=== PATIENT | female | born 1985 | race Caucasian/White ===

== ENCOUNTER 2017-09-14 16:11 | Emergency (ER) | payer BC, OTHER ==
[~2017-09-14 16:11] MED LIST: AUGM875 PO; BUPR150T3 PO; FISH1000 PO; FLUC100T41 PO; LORC10TA PO; PERC7.5T13 PO; PROZ40CA PO; SULF1TAB47 PO
[2017-09-14 16:23] VITALS: BP 141/90; PULSE 80; RESP 18; TEMP 97.8; O2SAT 99
[2017-09-14 18:07] LABS: AUTOMATED NEUTROPHIL # 4.4 TH/MM3 (1.8-7.7); BASOPHIL # 0.1 TH/MM3 (0-0.2); BASOPHIL % 0.9 % (0.0-2.0); EOSINOPHIL # 0.1 TH/MM3 (0-0.4); HEMATOCRIT 38.8 % (35.0-46.0); HEMOGLOBIN 13.4 GM/DL (11.6-15.3); LYMPH % 29.5 % (9.0-44.0); LYMPHOCYTE # 2.3 TH/MM3 (1.0-4.8); MEAN CELL VOLUME 91.4 FL (80.0-100.0); MEAN CORPUSCULAR HEMOGLOBIN 31.5 PG (27.0-34.0); MEAN CORPUSCULAR HGB CONC 34.5 % (32.0-36.0); MEAN PLATELET VOLUME 7.5 FL (7.0-11.0); MONO % 12.5 % (0.0-8.0); NEUT % 56.1 % (16.0-70.0); PLATELET COUNT 288 TH/MM3 (150-450); RED BLOOD COUNT 4.24 MIL/MM3 (4.00-5.30); RED CELL DISTRIBUTION WIDTH 13.9 % (11.6-17.2); WHITE BLOOD COUNT 7.8 TH/MM3 (4.0-11.0)
[2017-09-14 18:22] LABS: ALBUMIN 3.9 GM/DL (3.4-5.0); ALT (GPT) 92 U/L (10-53); AST (GOT) 37 U/L (15-37); BICARBONATE 22.5 MEQ/L (21.0-32.0); BLOOD UREA NITROGEN 15 MG/DL (7-18); CALCIUM 8.5 MG/DL (8.5-10.1); CHLORIDE 106 MEQ/L (98-107); CREATININE 0.62 MG/DL (0.50-1.00); GLOMERULAR FILTRATION RATE 111 ML/MIN (>89); GLUCOSE,RANDOM 90 MG/DL (74-106); SODIUM (NA) 135 MEQ/L (136-145)
[2017-09-14 18:32] LABS: ALKALINE PHOSPHATASE 86 U/L (45-117); TOTAL BILIRUBIN ADULT 0.3 MG/DL (0.2-1.0); TOTAL PROTEIN 7.2 GM/DL (6.4-8.2)
--- NOTE | 2017-09-14 23:02 | PD ---
HPI Chief Complaint: Psychiatric Symptoms Time Seen by Provider: 21:57 Travel History International Travel<30 days: No Contact w/Intl Traveler<30days: No Traveled to known affect area: No History of Present Illness HPI 32-year-old white female presents emergency department under [place] by PD. Patient's mother had called police after they had gotten into an argument at home. Patient has a history of blood clotting disorder etiology is unclear as well as primary variable immune deficiency. Patient was placed under [place] and brought to [facility]. It was determined that she was beyond their scope of practice because she was on Xarelto. The patient here denies any suicidal homicidal ideation. She denies any medical complaints. She states that she is merrily hungry. She gets into arguments with her mother on a regular basis. PFSH Past Medical History Bipolar Disorder: Yes Anxiety: Yes Depression: Yes Diminished Hearing: No Gastrointestinal Disorders: Yes (GASTRIC BYPASS ) Medical other: Yes (PTSD) ?: Not Social History Alcohol Use: No Tobacco Use: No Substance Use: No Allergies-Medications (Allergen,Severity, Reaction): Coded Allergies: cefuroxime (Unverified Allergy, Severe, HIVES, 09/14/17) levothyroxine (Verified Allergy, Unknown, 09/14/17) Uncoded Allergies: CEFZIL (Allergy, Mild, HIVES, 12/24/07) Reported Meds & Prescriptions Reported Meds & Active Scripts Active Percocet 7.5/325 (Oxycodone/Acetaminophen) Tab 1 Tab PO Q6HPRN FOR PAIN Diflucan (Fluconazole) 100 Mg Tab 100 Mg PO DAILY Bactrim Ds (Trimethoprim/Sulfamethoxazole) Tab 1 Tab PO BID Reported Lorcet 10/650 (Acetaminophen/Hydrocodone Bitart) Tab 1 Tab PO DIRECTED FOR PAIN Fish Oil 1,000 Mg Cap 1,000 Mg PO DAILY Prozac (Fluoxetine HCl) 40 Mg Cap 80 Mg PO DAILY Bupropion Hcl Xl (Bupropion HCl) 150 Mg Tab 300 Mg PO DAILY Augmentin (Amoxicillin/Clavulanate Potassium) 875 Mg Tab 875 Mg PO BID Review of Systems General / Constitutional: No: Fever Eyes: No: Visual changes HENT: No: Headaches Cardiovascular: No: Chest Pain or Discomfort Respiratory: No: Shortness of Breath Gastrointestinal: No: Abdominal Pain Genitourinary: No: Dysuria Musculoskeletal: No: Pain Skin: No Rash Neurologic: No: Weakness Psychiatric: No: Anxiety, Depression, Suicidal Ideations, Disorder of Thought, Mood Disorder, Substance Abuse, Homicidal Ideation Endocrine: No: Polydipsia Hematologic/Lymphatic: No: Easy Bruising Physical Exam Narrative GENERAL: Well-nourished, well-developed patient. SKIN: Warm and dry. HEAD: Normocephalic and atraumatic. EYES: No scleral icterus. No injection or drainage. ENT: No nasal drainage noted. Mucous membranes pink. Airway patent. NECK: Supple, trachea midline. Moves head freely without obvious discomfort. CARDIOVASCULAR: Regular rate and rhythm without murmurs, gallops, or rubs. RESPIRATORY: Breath sounds equal bilaterally. No accessory muscle use. GASTROINTESTINAL: Abdomen soft, non-tender, nondistended. EXTREMITIES: No cyanosis or edema. BACK: Nontender without obvious deformity. No CVA tenderness. NEURO: Patient is alert and oriented. no sensorimotor deficits. Nonfocal. Normal speech. PSYCH: No delusions. No auditory or visual hallucinations. Data Data Last Documented VS Vital Signs Date Time Temp Pulse Resp B/P (MAP) Pulse Ox O2 Delivery O2 Flow Rate FiO2 09/14/17 16:23 97.8 80 18 141/90 (107) 99 Orders Orders Complete Blood Count With Diff (09/14/17 16:50) Comprehensive Metabolic Panel (09/14/17 16:50) Thyroid Stimulating Hormone (09/14/17 16:50) Urinalysis - C+S If Indicated (09/14/17 16:50) Ed Urine Pregnancytest Poc (09/14/17 16:50) Psych Screen (09/14/17 16:50) Drug Screen, Random Urine (09/14/17 16:50) Alcohol (Ethanol) (09/14/17 16:50) Labs Laboratory Tests Test 09/14/17 17:44 White Blood Count 7.8 TH/MM3 Red Blood Count 4.24 MIL/MM3 Hemoglobin 13.4 GM/DL Hematocrit 38.8 % Mean Corpuscular Volume 91.4 FL Mean Corpuscular Hemoglobin 31.5 PG Mean Corpuscular Hemoglobin Concent 34.5 % Red Cell Distribution Width 13.9 % Platelet Count 288 TH/MM3 Mean Platelet Volume 7.5 FL Neutrophils (%) (Auto) 56.1 % Lymphocytes (%) (Auto) 29.5 % Monocytes (%) (Auto) 12.5 % Eosinophils (%) (Auto) 1.0 % Basophils (%) (Auto) 0.9 % Neutrophils # (Auto) 4.4 TH/MM3 Lymphocytes # (Auto) 2.3 TH/MM3 Monocytes # (Auto) 1.0 TH/MM3 Eosinophils # (Auto) 0.1 TH/MM3 Basophils # (Auto) 0.1 TH/MM3 CBC Comment DIFF FINAL Differential Comment Blood Urea Nitrogen 15 MG/DL Creatinine 0.62 MG/DL Random Glucose 90 MG/DL Total Protein 7.2 GM/DL Albumin 3.9 GM/DL Calcium Level 8.5 MG/DL Alkaline Phosphatase 86 U/L Aspartate Amino Transf (AST/SGOT) 37 U/L Alanine Aminotransferase (ALT/SGPT) 92 U/L Total Bilirubin 0.3 MG/DL Sodium Level 135 MEQ/L Potassium Level 4.3 MEQ/L Chloride Level 106 MEQ/L Carbon Dioxide Level 22.5 MEQ/L Anion Gap 7 MEQ/L Estimat Glomerular Filtration Rate 111 ML/MIN Thyroid Stimulating Hormone 3rd Gen 1.750 uIU/ML Ethyl Alcohol Level LESS THAN 3 MG/DL MDM Medical Decision Making Medical Screen Exam Complete: Yes Emergency Medical Condition: Yes Medical Record Reviewed: Yes Interpretation(s) Laboratory Tests Test 09/14/17 17:44 White Blood Count 7.8 TH/MM3 Red Blood Count 4.24 MIL/MM3 Hemoglobin 13.4 GM/DL Hematocrit 38.8 % Mean Corpuscular Volume 91.4 FL Mean Corpuscular Hemoglobin 31.5 PG Mean Corpuscular Hemoglobin Concent 34.5 % Red Cell Distribution Width 13.9 % Platelet Count 288 TH/MM3 Mean Platelet Volume 7.5 FL Neutrophils (%) (Auto) 56.1 % Lymphocytes (%) (Auto) 29.5 % Monocytes (%) (Auto) 12.5 % Eosinophils (%) (Auto) 1.0 % Basophils (%) (Auto) 0.9 % Neutrophils # (Auto) 4.4 TH/MM3 Lymphocytes # (Auto) 2.3 TH/MM3 Monocytes # (Auto) 1.0 TH/MM3 Eosinophils # (Auto) 0.1 TH/MM3 Basophils # (Auto) 0.1 TH/MM3 CBC Comment DIFF FINAL Differential Comment Blood Urea Nitrogen 15 MG/DL Creatinine 0.62 MG/DL Random Glucose 90 MG/DL Total Protein 7.2 GM/DL Albumin 3.9 GM/DL Calcium Level 8.5 MG/DL Alkaline Phosphatase 86 U/L Aspartate Amino Transf (AST/SGOT) 37 U/L Alanine Aminotransferase (ALT/SGPT) 92 U/L Total Bilirubin 0.3 MG/DL Sodium Level 135 MEQ/L Potassium Level 4.3 MEQ/L Chloride Level 106 MEQ/L Carbon Dioxide Level 22.5 MEQ/L Anion Gap 7 MEQ/L Estimat Glomerular Filtration Rate 111 ML/MIN Thyroid Stimulating Hormone 3rd Gen 1.750 uIU/ML Ethyl Alcohol Level LESS THAN 3 MG/DL Differential Diagnosis MDM: High Differential diagnoses: Schizophrenia, schizoaffective disorder, bipolar, anxiety, depression, adjustment reaction, mood disorder NOS, ODD, depressive disorder NOS, dementia, dementia with agitation, psychosis NOS, substance induced mood disorder, DMDD, Asperger syndrome, infection,electrolyte abnormality, malingering. Narrative Course Mental health screening discussed with the patient. Psychiatric screen ordered. The patient has been medically cleared. This is medical clearance for psychiatric admission Diagnosis Primary Impression: Medical clearance for psychiatric admission Condition: Cecil Shankar Sep 14, 2017 23:02
[2017-09-14 23:28] LABS: BILIRUBIN, URINE NEG (NEG); BLOOD, URINE TRACE (NEG); GLUCOSE,URINE NEG (NEG); KETONE, URINE NEG (NEG); MUCUS URINE FEW /lpf (OCC); NITRITE,URINE NEG (NEG); PH, URINE 6.5 (5.0-8.5); SQUAMOUS EPITHELIAL CELL URINE 7 /hpf (0-5); URINE COLOR YELLOW (YELLW/STRAW); URINE LEUKOCYTE ESTERASE TRACE (NEG)
[2017-09-15] MEDS ORDERED: levETIRAcetam 500 MG TAB PO ONE (02:00)
[2017-09-15] MEDS ORDERED: RIVAROXABAN 20 MG TAB PO ONE (02:00)
[2017-09-15 02:33] VITALS: BP 128/64; PULSE 77; RESP 17; O2SAT 99
[2017-09-15 10:29] VITALS: BP 137/78; PULSE 90; RESP 16; O2SAT 99
[2017-09-15] MEDS ORDERED: XARE20TA PO (14:43)
[2017-09-15] MEDS ORDERED: LEVE500 PO (14:44)
[2017-09-15] MEDS ORDERED: ALPR.25 PO (14:45)
[2017-09-15] MEDS ORDERED: WELLTAB39 PO (14:47)
[2017-09-15] MEDS ORDERED: TRIL300T PO (14:48)
[2017-09-15] MEDS ORDERED: GABA100C4 PO (14:49)
[2017-09-15] MEDS ORDERED: CYMB60CA PO (14:49)
[2017-09-15] MEDS ORDERED: SPIR25 PO (14:50)
[2017-09-15] MEDS ORDERED: SERO100T PO (14:50)
[2017-09-15] MEDS ORDERED: SYNT88TA PO (14:51)
[2017-09-15] MEDS ORDERED: FAMO1TAB37 PO (14:51)
[2017-09-15] MEDS ORDERED: SACC1CAP3 PO (14:52)
[2017-09-15] MEDS ORDERED: MULT-65 PO (14:53)
[2017-09-15] MEDS ORDERED: Iron Supplement PO (14:53)
[2017-09-15] MEDS ORDERED: CALC1TAB87 PO (14:55)
--- NOTE | 2017-09-15 16:54 | PD.PSY.CON ---
Provisional Diagnosis Admission Date [place] I. Adjustment disorder with disturbance of conduct, bipolar disorder, PTSD, Asperger's syndrome [place] II. Deferred History of Present Illness Service Psychiatry Consult Requested By ER Reason for Consult Aggressive behavior at home Primary Care Physician Unknown HPI The patient is a 32-year-old woman, domiciled with her mother, single , unemployed, with an extensive psychiatric history of bipolar disorder, PTSD, autism spectrum disorder, psychiatric hospitalizations, last hospitalization about 6 months ago in [facility], no previous suicidal attempts, she has outpatient psychiatric care with private psychiatrist Dr. lee, she is on Trileptal 900 mg twice a day, Wellbutrin 200 mg, Cymbalta 60 mg, Seroquel 150 mg at bedtime, medical history of seizures, fibromyalgia, asthma, who presents emergency department under Willis act by PD. Patient's mother had called police after they had gotten into an argument at home. On psychiatric evaluation today the patient is calm, cooperative and pleasant. The patient reports that she had one of her regular arguments with her mother today, her mother got very upset and called the police. Moment the patient does not present any evidence of depression, anxiety, angelo or psychosis. The patient denies suicidal and homicidal ideation, the patient is logical, coherent and relevant. The delusions, no obsessions, no paranoia, no aggressive behavior, no agitation, no disorganized behavior speech present. Review of Systems Constitutional: DENIES: Diaphoretic episodes, Fatigue, Fever, Weight gain, Weight loss, Chills, Dizziness, Change in appetite, Night Sweats Endocrine: DENIES: Abnorml menstrual pattern, Heat/cold intolerance, Polydipsia , Polyuria, Polyphagia Eyes: DENIES: Blurred vision, Diplopia, Eye inflammation, Eye pain, Vision loss , Photosensitivity, Double Vision Ears, nose, mouth, throat: DENIES: Tinnitus, Hearing loss, Vertigo, Nasal discharge, Oral lesions, Throat pain, Hoarseness, Ear Pain, Running Nose, Epistaxis, Sinus Pain, Toothache, Odynophagia Respiratory: DENIES: Apneas, Cough, Snoring, Wheezing, Hemoptysis, Sputum production, Shortness of breath Cardiovascular: DENIES: Chest pain, Palpitations, Syncope, Dyspnea on Exertion , PND, Lower Extremity Edema, Orthopnea, Claudication Gastrointestinal: DENIES: Abdominal pain, Black stools, Bloody stools, Constipation, Diarrhea, Nausea, Vomiting, Difficulty Swallowing, Anorexia Genitourinary: DENIES: Abnormal vaginal bleeding, Dysmenorrhea, Dyspareunia, Sexual dysfunction, Urinary frequency, Urinary incontinence, Urgency, Hematuria , Dysuria, Nocturia, Vaginal discharge Musculoskeletal: DENIES: Joint pain, Muscle aches, Stiffness, Joint Swelling, Back pain, Neck pain Integumentary: DENIES: Abnormal pigmentation, Pruritus, Rash, Nail changes, Breast masses, Breast skin changes, Nipple discharge Hematologic/lymphatic: DENIES: Bruising, Lymphadenopathy Neurologic: DENIES: Abnormal gait, Headache, Localized weakness, Paresthesias, Seizures, Speech Problems, Tremor, Poor Balance Psychiatric: DENIES: Anxiety, Confusion, Mood changes, Depression, Hallucinations, Agitation, Suicidal Ideation, Homicidal Ideation, Delusions Past Family Social History Coded Allergies: cefuroxime (Unverified Allergy, Severe, HIVES, 09/14/17) levothyroxine (Verified Allergy, Unknown, 09/14/17) Uncoded Allergies: CEFZIL (Allergy, Mild, HIVES, 12/24/07) Reported Medications Calcium Carbonate-Cholecalciferol (Calcium 600 with Vitamin D) 600-400 mg-Unit Tab, 1 TAB PO DAILY for Calcium Supplement, TAB 0 Refills 09/15/17 [Iron Supplement] No Conflict Check, 60 MG PO DAILY 09/15/17 Multiple Vitamin (Multi-Vitamin Daily) 1 Tab Tab, 1 TAB PO DAILY for Nutritional Supplement, TAB 0 Refills 09/15/17 Saccharomyces Boulardii (Probiotic) 250 Mg Cap, 250 MG PO BID for Nutritional Supplement, CAP 0 Refills 09/15/17 Famotidine (Pepcid) 20 Mg Tab, PO BID, #60 TAB 0 Refills 09/15/17 Levothyroxine (Synthroid) 88 Mcg Tab, 88 MCG PO DAILY for Thyroid, #30 TAB 0 Refills 09/15/17 Spironolactone (Aldactone) 25 Mg Tab, 25 MG PO DAILY, #30 TAB 0 Refills 09/15/17 Quetiapine (Seroquel) 100 Mg Tab, 150 MG PO HS, #30 TAB 0 Refills 09/15/17 Gabapentin (Gabapentin) 100 Mg Cap, 100 MG PO TID, #90 CAP 0 Refills 09/15/[address] (Cymbalta DR) 60 Mg Capdr, 60 MG PO DAILY, #30 CAP 0 Refills 09/15/17 Oxcarbazepine (Trileptal) 300 Mg Tab, 900 MG PO BID for Seizure Control, #60 TAB 0 Refills 09/15/17 Bupropion HCl ER 24 HR (Wellbutrin Xl 24 HR) 300 Mg Tab, 300 MG PO DAILY for Control Depression, TAB 0 Refills 09/15/17 Alprazolam (Xanax) 0.25 Mg Tab, 0.25 MG PO BID Y for ANXIETY, TAB 0 Refills 09/15/17 Levetiracetam (Keppra) 500 Mg Tab, 500 MG PO BID for Control Seizures, #60 TAB 0 Refills 09/15/17 Rivaroxaban (Xarelto) 20 Mg Tab, 20 MG PO DAILY for Blood Clot Prevention, TAB 0 Refills 09/15/17 Discontinued Reported Medications Hydrocodone-Acetaminophen (Lorcet 10/650) Tab, 1 TAB PO DIRECTED, 0 Refills FOR PAIN 12/24/07 [place]-3 Fatty Acids (Fish Oil) 1,000 Mg Cap, 1000 MG PO DAILY, 0 Refills 12/24/07 Fluoxetine Hcl (Prozac) 40 Mg Cap, 80 MG PO DAILY, 0 Refills 12/24/07 Bupropion Hcl (Bupropion Hcl Xl) 150 Mg Tab, 300 MG PO DAILY, 0 Refills 12/24/07 Amoxicillin/Clavulanate K (Augmentin) 875 Mg Tab, 875 MG PO BID, #14 0 Refills 12/24/07 Discontinued Scripts Oxycodone-Acetaminophen 7.5-325 mg (Percocet 7.5-325 mg) 1 Tab, 1 TAB PO Q6HPRN , #20 0 Refills FOR PAIN Prov:MACK DUMAS M.D. 12/24/07 Fluconazole 100 mg (Diflucan 100 mg) 100 Mg Tab, 100 MG PO DAILY, #7 0 Refills Prov:MACK DUMAS M.D. 12/24/07 Trimethoprim/Sulfamethoxazole (Bactrim Ds) Tab, 1 TAB PO BID, #20 0 Refills Prov:MACK DUMAS M.D. 12/24/07 Family Psych History Family psychiatric history Social History Patient was born and raised in [place] Patient's Strengths (min. 2) Family support, outpatient psychiatric Physical Exam Vital Signs Vital Signs Date Time Temp Pulse Resp B/P (MAP) Pulse Ox O2 Delivery O2 Flow Rate FiO2 09/15/17 10:29 90 16 137/78 (97) 99 Room Air 09/14/17 16:23 97.8 Lab Results Test 09/14/17 17:44 09/14/17 22:45 White Blood Count 7.8 TH/MM3 Red Blood Count 4.24 MIL/MM3 Hemoglobin 13.4 GM/DL Hematocrit 38.8 % Mean Corpuscular Volume 91.4 FL Mean Corpuscular Hemoglobin 31.5 PG Mean Corpuscular Hemoglobin Concent 34.5 % Red Cell Distribution Width 13.9 % Platelet Count 288 TH/MM3 Mean Platelet Volume 7.5 FL Neutrophils (%) (Auto) 56.1 % Lymphocytes (%) (Auto) 29.5 % Monocytes (%) (Auto) 12.5 % Eosinophils (%) (Auto) 1.0 % Basophils (%) (Auto) 0.9 % Neutrophils # (Auto) 4.4 TH/MM3 Lymphocytes # (Auto) 2.3 TH/MM3 Monocytes # (Auto) 1.0 TH/MM3 Eosinophils # (Auto) 0.1 TH/MM3 Basophils # (Auto) 0.1 TH/MM3 CBC Comment DIFF FINAL Differential Comment Blood Urea Nitrogen 15 MG/DL Creatinine 0.62 MG/DL Random Glucose 90 MG/DL Total Protein 7.2 GM/DL Albumin 3.9 GM/DL Calcium Level 8.5 MG/DL Alkaline Phosphatase 86 U/L Aspartate Amino Transf (AST/SGOT) 37 U/L Alanine Aminotransferase (ALT/SGPT) 92 U/L Total Bilirubin 0.3 MG/DL Sodium Level 135 MEQ/L Potassium Level 4.3 MEQ/L Chloride Level 106 MEQ/L Carbon Dioxide Level 22.5 MEQ/L Anion Gap 7 MEQ/L Estimat Glomerular Filtration Rate 111 ML/MIN Thyroid Stimulating Hormone 3rd Gen 1.750 uIU/ML Ethyl Alcohol Level LESS THAN 3 MG/DL Urine Color YELLOW Urine Turbidity HAZY Urine pH 6.5 Urine Specific [place] 1.030 Urine Protein TRACE mg/dL Urine Glucose (UA) NEG mg/dL Urine Ketones NEG mg/dL Urine Occult Blood TRACE Urine Nitrite NEG Urine Bilirubin NEG Urine Urobilinogen LESS THAN 2.0 MG/DL Urine Leukocyte Esterase TRACE Urine RBC 62 /hpf Urine WBC 4 /hpf Urine Squamous Epithelial Cells 7 /hpf Urine Mucus FEW /lpf Microscopic Urinalysis Comment CULT NOT INDICATED Urine Opiates Screen NEG Urine Barbiturates Screen NEG Urine Amphetamines Screen NEG Urine Benzodiazepines Screen POS Urine Cocaine Screen NEG Urine Cannabinoids Screen NEG Mental Status Examination Appearance: Appropriate Consciousness: Alert Orientation: x4 Motor Activity: Normal gait Speech: Unremarkable Language: Adequate Fund of Knowledge: Adequate Attention and Concentration: Adequate Memory: Unremarkable Mood: Appropriate Affect: Appropriate Thought Process & Associations: Intact Thought Content: Appropriate Hallucination Type: None Delusion Type: None Suicidal Ideation: No Suicidal Plan: No Suicidal Intention: No Homicidal Ideation: No Homicidal Plan: No Homicidal Intention: No Insight: Adequate Judgment: Adequate Assessment & Plan Problem List: (1) Adjustment disorder with disturbance of conduct ICD Codes: F43.24 - Adjustment disorder with disturbance of conduct Assessment & Plan: Patient does not present any neuropsychiatric symptoms that require an immediate psychiatric attention at this moment. Patient denies suicidal or homicidal ideation, she denies visual and auditory hallucinations. Patient does not meet criteria for involuntary psychiatric admission. She can continue her psychiatric care as an outpatient with primary psychiatrist. Willis act will be lifted. Assessment & Plan Estimated LOS: Pranav Devries MD Sep 15, 2017 16:54
--- NOTE | 2017-09-15 17:00 | PD ---
Physical Exam Time Seen by Provider: 16:[address] Ledesma has evaluated the patient, lifted the Willis act and cleared the patient for discharge. Data Data Last Documented VS Vital Signs Date Time Temp Pulse Resp B/P (MAP) Pulse Ox O2 Delivery O2 Flow Rate FiO2 09/15/17 10:29 90 16 137/78 (97) 99 Room Air 09/14/17 16:23 97.8 Orders Orders Complete Blood Count With Diff (09/14/17 16:50) Comprehensive Metabolic Panel (09/14/17 16:50) Thyroid Stimulating Hormone (09/14/17 16:50) Urinalysis - C+S If Indicated (09/14/17 16:50) Ed Urine Pregnancytest Poc (09/14/17 16:50) Psych Screen (09/14/17 16:50) Drug Screen, Random Urine (09/14/17 16:50) Alcohol (Ethanol) (09/14/17 16:50) Rivaroxaban (Xarelto) (09/15/17 02:00) Levetiracetam (Keppra) (09/15/17 02:00) Diet Regular Basic (09/15/17 Breakfast) Diet Regular Basic (09/15/17 Lunch) Diet Regular Basic (09/15/17 Dinner) Labs Laboratory Tests Test 09/14/17 17:44 09/14/17 22:45 White Blood Count 7.8 TH/MM3 Red Blood Count 4.24 MIL/MM3 Hemoglobin 13.4 GM/DL Hematocrit 38.8 % Mean Corpuscular Volume 91.4 FL Mean Corpuscular Hemoglobin 31.5 PG Mean Corpuscular Hemoglobin Concent 34.5 % Red Cell Distribution Width 13.9 % Platelet Count 288 TH/MM3 Mean Platelet Volume 7.5 FL Neutrophils (%) (Auto) 56.1 % Lymphocytes (%) (Auto) 29.5 % Monocytes (%) (Auto) 12.5 % Eosinophils (%) (Auto) 1.0 % Basophils (%) (Auto) 0.9 % Neutrophils # (Auto) 4.4 TH/MM3 Lymphocytes # (Auto) 2.3 TH/MM3 Monocytes # (Auto) 1.0 TH/MM3 Eosinophils # (Auto) 0.1 TH/MM3 Basophils # (Auto) 0.1 TH/MM3 CBC Comment DIFF FINAL Differential Comment Blood Urea Nitrogen 15 MG/DL Creatinine 0.62 MG/DL Random Glucose 90 MG/DL Total Protein 7.2 GM/DL Albumin 3.9 GM/DL Calcium Level 8.5 MG/DL Alkaline Phosphatase 86 U/L Aspartate Amino Transf (AST/SGOT) 37 U/L Alanine Aminotransferase (ALT/SGPT) 92 U/L Total Bilirubin 0.3 MG/DL Sodium Level 135 MEQ/L Potassium Level 4.3 MEQ/L Chloride Level 106 MEQ/L Carbon Dioxide Level 22.5 MEQ/L Anion Gap 7 MEQ/L Estimat Glomerular Filtration Rate 111 ML/MIN Thyroid Stimulating Hormone 3rd Gen 1.750 uIU/ML Ethyl Alcohol Level LESS THAN 3 MG/DL Urine Color YELLOW Urine Turbidity HAZY Urine pH 6.5 Urine Specific [place] 1.030 Urine Protein TRACE mg/dL Urine Glucose (UA) NEG mg/dL Urine Ketones NEG mg/dL Urine Occult Blood TRACE Urine Nitrite NEG Urine Bilirubin NEG Urine Urobilinogen LESS THAN 2.0 MG/DL Urine Leukocyte Esterase TRACE Urine RBC 62 /hpf Urine WBC 4 /hpf Urine Squamous Epithelial Cells 7 /hpf Urine Mucus FEW /lpf Microscopic Urinalysis Comment CULT NOT INDICATED Urine Opiates Screen NEG Urine Barbiturates Screen NEG Urine Amphetamines Screen NEG Urine Benzodiazepines Screen POS Urine Cocaine Screen NEG Urine Cannabinoids Screen NEG MDM Supervised Visit with [facility]: No Narrative Course Dr. Ledesma has evaluated the patient, lifted the Willis act and cleared the patient for discharge. Patient contracts safety. Denies suicidal or homicidal ideations. Patient will be provided community resource packet to [facility] for follow-up. Has friends and family for support. Patient was medically cleared by alternate provider prior to psych screening. Patient has been evaluated by psychiatry and and is now cleared for discharge. Diagnosis Primary Impression: Adjustment disorder with disturbance of conduct Referrals: [facility] (Out patient) [facility] Primary Care Physician Psychiatrist Manju [facility] Patient Instructions: General Instructions, Mood Disorders (ED) Additional Instruction: Contract safety to your self and others Follow-up with psychiatry Follow-up with primary care provider Follow-up with [facility] Return to the emergency department immediately with worsening of symptoms Med/Other Pt SpecificInfo: No Change to Meds, No Meds Exist/No RX given Disposition: 01 DISCHARGE HOME Condition: Stable Olivia Handley Sep 15, 2017 17:00
[2017-09-15 18:34] VITALS: BP 159/79; PULSE 74; RESP 16; TEMP 98.5; O2SAT 100
== END 2017-09-15 18:51 | disposition home or self-care (01) ==
LOC: NEDAMB 16:11 → NEPJ 09-15 18:51
DX: F43.24 Adjustment disorder with disturbance of conduct (principal); Z79.899 Other long term (current) drug therapy
CPT/HCPCS: 80053; 80307; 81001; 84443; 84703; 85025; 99283